=== PATIENT | male | born 1985 | race Asian ===

== ENCOUNTER 2018-10-02 18:04 | Emergency (ER) | payer OTHER ==
[2018-10-02] MEDS: DEXAMETHASONE 4 MG TAB PO (19:20)
[2018-10-02] MEDS: ALBUTEROL 0.083% (NEB) 2.5 MG/3 ML AMP HHN (19:34)
[2018-10-02] MEDS: IPRATROPIUM (NEB) 0.5 MG/2.5 ML AMP HHN (19:34)
== END 2018-10-02 20:37 | disposition home or self-care (01) ==
LOC: FTE 18:04
DX: J45.901 Unspecified asthma with (acute) exacerbation (principal)
CPT/HCPCS: 94664; 99283-25